=== PATIENT | male | born 1975 | race Caucasian/White ===

== ENCOUNTER 2023-04-02 09:38 | Day surgery (SDC) | payer OTHER, SELFPAY ==
[2023-04-02] VITALS (21 sets, daily range): BP systolic 118–165; BP diastolic 58–90; PULSE 61–87; RESP 12–18; TEMP 36.1–37.2; O2SAT 93–99; BMI 23.1
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
[2023-04-02] MEDS: PIPERACILLIN/TAZOBACTAM 3.375 GM in 0.9 % SODIUM CHLORIDE Mini-bag 100 ML IVPB ×3 (10:41→22:58)
[2023-04-02 10:44] LABS: Basophils Percent Auto 0.1 % (0.0-3.0); Eosinophils Percent Auto 0.1 % (0.0-7.0); Hemoglobin* 14.9 gm/dL (13.5-17.5); Immature Granulocytes Pct Auto 0.2 %; Lymphocytes Percent Auto 9.5 % (20-44); Mean Corpuscular HGB Conc 33 gm/dL (32-36); Mean Corpuscular Hemoglobin 31 pg (26-34); Mean Corpuscular Volume 93 fL (80-100); Monocytes Percent Auto 7.1 % (0.0-11.0); Platelet Count* 214 K/uL (140-440); RDW Coefficient of Variation % 12.9 % (11.5-15.5); Red Blood Count 4.85 m/uL (4.30-5.90)
[2023-04-02 10:45] LABS: Slide Review Reflex No
[2023-04-02 10:55] LABS: Chloride* 103 mmol/L (96-114); Potassium* 3.8 mmol/L (3.6-5.1); Sodium* 141 mmol/L (135-149)
[2023-04-02 10:58] LABS: Est. Creatinine Clearance* 106.59; Estimated Glomerular Filt Rate 94 ml/min
[2023-04-02 10:59] LABS: Anion Gap 13 mEq/L (7-15); Blood Urea Nitrogen* 11 mg/dL (5-24); Calcium* 9.8 mg/dL (8.4-10.6); Carbon Dioxide* 25 mmol/L (20-32); Glucose* 101 mg/dL (60-115)
[2023-04-02 11:22] LABS: Erythrocyte SedimentationRate* 28 mm/hr (2-15)
[2023-04-02] MEDS: LACTATED RINGERS 1000 ML 1,000 ML 100 ML IV ×2 (12:00→14:54)
--- NOTE | 2023-04-02 12:17 | W.ANESCHARGE ---
Anesthesia Charges Start Date/Time Anesthesia Start Date: 04/02/23 Anesthesia Start Time: 12:28 Stop Date/Time Anesthesia Stop Date: 04/02/23 Anesthesia Stop Time: 13:38 Summary Emergency: MDA
--- NOTE | 2023-04-02 13:15 | PM.ORCN ---
History of Present Illness HPI Date Seen: 04/02/23 Requesting physician: Rainer Mahoney Chief complaint: left arm/elbow infection Narrative: The patient is a 47-year-old caick-rekd-iuiprtoa gentleman with increasing left elbow pain and redness. He was diagnosed by Dr. Mahoney with septic olecranon bursitis. He has never injured this elbow or had surgery previously. He does not have diabetes, does not smoke cigarettes and is not on blood thinners. Review of Systems Narrative: The patient denies: Fever, night sweats, shaking chills, nausea, vomiting, diarrhea, chest pain, chest pressure, shortness of breath, no rash, no change in hearing or vision, no issues with bleeding or clotting PFSH PFSH Social History Smoking Status: Never smoker Do you use any of these nicotine containing products: None Second hand tobacco smoke exposure: No How often do you have a drink containing alcohol: monthly or less How many standard drinks containing alcohol do you have on a typical day: 1 or 2 AUDIT-C Alcohol total score: 1 Non-prescribed substance use: denies use Caffeine: Yes Meds Home Medications and Allergies Home Medications Medication Instructions Recorded Confirmed Type amoxicillin 875 mg-potassium 1 tab PO BID 04/02/23 04/02/23 History clavulanate 125 mg tablet Allergies Allergy/AdvReac Type Severity Reaction Status Date / Time No Known Drug Allergies Allergy Verified 04/02/23 11:47 Ortho Exam Narrative Exam Narrative: The patient is alert and oriented x3, in no acute distress, they are able to converse in a normal speaking voice without obvious hearing loss and with nonlabored breathing. 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 There is fluid in the olecranon bursa with overlying erythema, warmth and tenderness. There is no drainage. There is cellulitis proximally up the back of the arm. CMS to the hand is normal. Const Vital Signs, click to edit/add: Vital Signs - 24 hr 04/02/23 09:48 04/02/23 11:50 Temperature 98.8 F 98.9 F Pulse Rate 81 Pulse Rate [Right Pulse Oximeter] 81 Respiratory Rate 18 16 Blood Pressure 165/82 H Blood Pressure [Right Upper Arm] 136/89 Pulse Oximetry 99 98 Oxygen Delivery Method Room Air Room Air Results Labs Labs: Laboratory Results - last 48 hr 04/02/23 10:16 WBC 12.50 H RBC 4.85 Hgb 14.9 Hct 45.0 MCV 93 MCH 31 MCHC 33 RDW Coeff of [place] 12.9 Plt Count 214 Neut % (Auto) 83.0 H Lymph % (Auto) 9.5 L [place] % (Auto) 7.1 Eos % (Auto) 0.1 Baso % (Auto) 0.1 Neut # (Auto) 10.40 H Lymph # (Auto) 1.20 [place] # (Auto) 0.90 Eos # (Auto) 0.00 Baso # (Auto) 0.00 Abs Immat Gran (auto) 0.00 Imm/Tot Granulo (auto) 0.2 ESR 28 H Sodium 141 Potassium 3.8 Chloride 103 Carbon Dioxide 25 Anion Gap 13 BUN 11 Creatinine 1.0 Estimated Creat Clear 106.59 Estimated GFR 94 Glucose 101 Calcium 9.8 C-Reactive Protein 19.0 H Assessment and Plan Assessment and plan (1) Septic olecranon bursitis of left elbow: Status: Acute Plan Assessment: Left upper extremity septic olecranon bursitis Plan: He has been NPO and is medically cleared for surgery. Therefore, I have suggested that we take him to the operating room now for incision and drainage. I think he will likely need 24 hours of IV antibiotics.
--- NOTE | 2023-04-02 13:19 | PM.ORPRC ---
Procedure Note Date of procedure: 04/02/23 Procedure: PREOPERATIVE DIAGNOSIS: Left upper extremity septic olecranon bursitis POSTOPERATIVE DIAGNOSIS: Left upper extremity septic olecranon bursitis NAME OF OPERATION: Left olecranon incision and drainage, debridement of bursa SURGEON: Davin Scales MD PRODUCTION UNDERWRITER: VERO Parkinson ANESTHESIA: General ESTIMATED BLOOD LOSS: 0 mL COMPLICATIONS: None SPECIMENS: Routine cultures sent labeled as left elbow olecranon bursa DRAINS: None PREOPERATIVE ANTIBIOTICS: Received vancomycin in the emergency department INDICATIONS: The patient is a 47-year-old with a history of left elbow pain, swelling and redness. He presented to the emergency department today and was diagnosed with septic olecranon bursitis. Urgent incision and drainage was recommended. The risks, benefits and expected outcomes were discussed in detail. These included but were not limited to: Infection, bleeding, injury to blood vessel or nerve, venous thromboembolism. All questions were answered to their satisfaction. PROCEDURE: The patient was placed supine on the operating table. General anesthesia was administered. The left upper extremity was prepped and draped in the usual sterile fashion. The limb was exsanguinated with the Darwin bandage. The pneumatic tourniquet was inflated to 250 mmHg. A standard longitudinal incision was made over the posterior aspect of the elbow, curving it radially over the tip of the olecranon. Subcutaneous dissection was sharply taken to the bursa which was entered. Purulence was encountered. This was sent for routine cultures. Dissection was sharply taken to the olecranon on. The bursa was sharply debrided off of the skin side. We debrided the bursa in its entirety with the scalpel, curette and rongeur. The wound was irrigated with normal saline via pulse lavage. space was closed with a 0 Vicryl, skin closed with a 3-0 Stratafix in a subcuticular fashion. Glue was used to seal the skin. The tourniquet was released. A soft dressing and long-arm posterior splint were applied. Sponge and needle counts were correct x 2. The patient tolerated the procedure well. There were no apparent complications. They were carefully transferred to the hospital bed and taken to the postanesthesia care unit in satisfactory condition. PLAN: The patient will be admitted for IV antibiotics. Upon discharge, he can follow up in the office next week for a wound check.
--- NOTE | 2023-04-02 13:40 | W.ANESCHARGE ---
Anesthesia Charges Start Date/Time Anesthesia Start Date: 04/02/23 Anesthesia Start Time: 12:28 Stop Date/Time Anesthesia Stop Date: 04/02/23 Anesthesia Stop Time: 13:38 Summary Emergency: MDA
[2023-04-02] MEDS: ACETAMINOPHEN 325 MG TABLET 650 MG PO (14:53)
[2023-04-02] MEDS: OXYCODONE 5 MG TABLET PO (14:54)
--- NOTE | 2023-04-02 17:08 | PM.IMHP1 ---
Hospitalist- H&P: HPI History of Present Illness Date Seen: 04/02/23 Chief complaint: left arm/elbow infection Narrative: ADMISSION HISTORY AND PHYSICAL - HOSPITALIST Chief Complaint: Left elbow swelling HPI: 46-year-old Luis who has a history of paroxysmal AFib presented to the ED with increased pain and swelling in his left elbow. 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 Last week while responding to a call he is pretty sure he dragged his elbow through wild parsnip. 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 No fever. No chills. ER COURSE: No imaging. Basic labs. Ortho consult. He went straight to the OR from the ED. CODE STATUS: FULL CODE EMERGENCY CONTACT PLAN: Shira Watt? ?Rel to Pat? [phone]?Cell Phone? I've updated the PFSH, medications and allergies in the Expanse tabs. INVESTIGATIONS: LABS/MICRO/ECG/IMAGING Afebrile 98.9 (postoperatively) Blood pressure 130/82 Pulse 77 Respiratory rate 18 Pulse ox 95% on room air 81 kilos CBC reflects a leukocytosis of 12.5 Hemoglobin is normal at 14.9 Platelets 214 Basic metabolic is completely normal C reactive protein is up at 19 No imaging was completed No organisms were seen but there were moderate right blood cells on the Gram stain during surgery Aerobic and anaerobic culture are in progress 2 blood cultures are pending ECHO OV with Dr. Ho on 07/06. Echocardiogram ordered. Results reviewed by Dr. Ho. In basket message received from Dr. Ho. ? 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 Thank you very much ! Que Ho MD .................... ?07/13/2020 ? 1:35 PM ? Final Impressions: ?1. Normal left ventricular size, normal wall thickness, normal global systolic function, calculated EF of 61 %. ?2. Right ventricular cavity size is normal, global systolic RV function is normal. ?3. No significant valve disease detected. REVIEW OF SYSTEMS: 12-point ROS completed with patient and negative unless otherwise stated in HPI or below. PHYSICAL EXAM: CONSTITUTIONAL: Conversive, good historian. A/O. Knows setting and context. VITAL SIGNS: see record. HEENT: Normocephalic, atraumatic. PERRL, EOMI, conjunctivae pink, no scleral icterus. Ears and nose externally normal. Pharynx normal. NECK: No JVD. No carotid bruit, no thyromegaly, no adenopathy. CHEST: Clear to auscultation bilaterally HEART: S1 and S2 normal. No harsh murmurs. Edema MUSCULOSKELETAL: Left arm is in a postoperative splint. Not taken down. 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 NEURO: Cranial nerves intact. Grossly intact. No asymmetric findings. SKIN: No rashes, petechiae, concerning changes PSYCHIATRIC: Euthymic. ADMIT TO MEDSURG: FLOOR CARE DVT: SCDs GI: PO intake Time spent: Today I spent 75 minutes seeing the patient, discussing the patient with ER staff, reviewing Expanse and EPIC notes/diagnostics, discussing the care plan with our care time that includes social work, PT/OT, pharmacy, RT, detention and documenting my impressions and plan in the medical record. [facility] Medical History (Updated 04/03/23 @ 00:25 by Pham Max MD) Testicular torsion ?N44.00 - Torsion of testis, unspecified (ICD-10) PAF (paroxysmal atrial fibrillation) ?I48.0 - Paroxysmal atrial fibrillation (ICD-10) Surgical History (Updated 04/02/23 @ 17:18 by Pham Max MD) Hx of nasal septoplasty ?Z98.890 - Other specified postprocedural states (ICD-10) History of testicular surgery ?Z98.890 - Other specified postprocedural states (ICD-10) History of bronchoscopy ?Z98.890 - Other specified postprocedural states (ICD-10) Hx of appendectomy ?Z90.49 - Acquired absence of other specified parts of digestive tract (ICD-10) History of vasectomy ?Z98.52 - Vasectomy status (ICD-10) Social History Smoking Status: Never smoker Do you use any of these nicotine containing products: None Second hand tobacco smoke exposure: No How often do you have a drink containing alcohol: monthly or less How many standard drinks containing alcohol do you have on a typical day: 1 or 2 AUDIT-C Alcohol total score: 1 Non-prescribed substance use: denies use Caffeine: Yes Meds Home Medications and Allergies Home Medications Medication Instructions Recorded Confirmed Type amoxicillin 875 mg-potassium 1 tab PO BID 04/02/23 04/02/23 History clavulanate 125 mg tablet Allergies Allergy/AdvReac Type Severity Reaction Status Date / Time No Known Drug Allergies Allergy Verified 04/02/23 11:47 Exam Const: Vital Signs, click to edit/add: Vital Signs - 24 hr 04/02/23 09:48 04/02/23 11:50 04/02/23 13:35 Temperature 98.8 F 98.9 F 98.6 F Pulse Rate 81 85 Pulse Rate [Right Pulse Oximeter] 81 Respiratory Rate 18 16 14 Blood Pressure 165/82 H 136/82 Blood Pressure [Ri ght Arm] Blood Pressure [Ri ght Upper Arm] 136/89 Pulse Oximetry 99 98 93 Oxygen Delivery Me thod Room Air Room Air Nasal Cannula Oxygen Flow Rate 3 04/02/23 13:40 04/02/23 13:45 04/02/23 13:50 Temperature 98.9 F Pulse Rate 82 76 75 Pulse Rate [Right Pulse Oximeter] Respiratory Rate 14 12 15 Blood Pressure 134/79 127/83 130/80 Blood Pressure [Ri ght Arm] Blood Pressure [Ri ght Upper Arm] Pulse Oximetry 97 96 96 Oxygen Delivery Me thod Nasal Cannula Nasal Cannula Room Air Oxygen Flow Rate 3 2 04/02/23 13:55 04/02/23 14:00 04/02/23 14:05 Temperature 98.9 F Pulse Rate 77 69 77 Pulse Rate [Right Pulse Oximeter] Respiratory Rate 16 18 18 Blood Pressure 122/80 128/81 122/73 Blood Pressure [Ri ght Arm] Blood Pressure [Ri ght Upper Arm] Pulse Oximetry 93 95 95 Oxygen Delivery Me thod Room Air Room Air Room Air Oxygen Flow Rate 04/02/23 14:30 Temperature 98.9 F Pulse Rate 77 Pulse Rate [Right Pulse Oximeter] Respiratory Rate 18 Blood Pressure Blood Pressure [Ri ght Arm] 130/82 Blood Pressure [Ri ght Upper Arm] Pulse Oximetry Oxygen Delivery Me thod Room Air Oxygen Flow Rate Hospitalist - H&P: Result Labs Labs: Short CBC 08/31/23 Range/Units 10:16 WBC 12.50 H (4.50-11.00) K/uL Hgb 14.9 (13.5-17.5) gm/dL Hct 45.0 (37.0-53.0) % Plt Count 214 (140-440) K/uL [facility] 04/02/23 10:16 Sodium 141 Potassium 3.8 Chloride 103 Carbon Dioxide 25 BUN 11 Creatinine 1.0 Glucose 101 Calcium 9.8 Assessment and Plan Assessment and plan (1) Septic olecranon bursitis of left elbow: Problem comment: -gram stain negative. Cultures pending -vanc and Zosyn ordered for at least 24 hours Status: Acute (2) PAF (paroxysmal atrial fibrillation): Problem comment: -2 lifetime occurrences. No rate control or anticoagulation indicated. Status: Acute
--- NOTE | 2023-04-02 19:38 | PC.NURSE ---
Patient up to floor at 1415. alert and oriented x4. Rates pain 7/10 PRN oxy and tylenol administered with relief. Denies N/V/SOB. Dressing to left shoulder C/D/I. Left arm in a sling and dean bandage to arm intact. Will be removed tomorrow. Patient tolerating a regular diet. SL. on RA. Up to BR voided x2. Bilateral SCD's in use.
[2023-04-02] MEDS: SENNOSIDES 1 TAB TABLET 2 TAB PO (22:57)
[2023-04-02] MEDS: KETOROLAC 30 MG/ML inj IVP (22:57)
[2023-04-02] MEDS: 0.9 % SODIUM CHLORIDE 250 ml IV (22:58)
[2023-04-03 03:00] VITALS: BP 143/64; PULSE 82; RESP 16; TEMP 37.7; O2SAT 93
[2023-04-03] MEDS: PIPERACILLIN/TAZOBACTAM 3.375 GM in 0.9 % SODIUM CHLORIDE Mini-bag 100 ML IVPB ×2 (05:36→11:23)
[2023-04-03] MEDS: KETOROLAC 30 MG/ML inj IVP ×2 (05:37→11:23)
[2023-04-03 07:00] VITALS: BP 142/80; PULSE 77; RESP 16; TEMP 36.8; O2SAT 96
--- NOTE | 2023-04-03 08:40 | PC.NURSE ---
Pt pleasant and cooperative. He is up I in room. VSS he is voiding and tolerating a reg diet. T max over night 99.8 States no pain just like a little itch. No pain meds given.
--- NOTE | 2023-04-03 08:56 | PM.ORPN ---
Subjective Subjective Time Seen by Provider: 07:30 Date Seen: 04/03/23 Principal diagnosis: Left septic olecranon bursitis excision, irrigation and drainage on Interval history: Luis is comfortable this morning in his splint. He states his pain is much improved from yesterday. He is getting IV antibiotics Ortho Exam Narrative Exam Narrative: Alert and oriented x3. Patient is in no acute distress. Converses without labored breathing. Hearing is grossly intact. Ambulates with a normal gait. Examination of the left upper extremity shows the arm is in a long-arm splint. He is able to flex and extend his fingers. Capillary refill less than 2 seconds in his fingers. CMS is intact left upper extremity. Splint is well placed and non irritating to his skin, except he states he has minor itching inside. The skin is intact. Const Vital Signs, click to edit/add: Vital Signs - 24 hr 04/02/23 09:48 04/02/23 11:50 04/02/23 13:35 Temperature 98.8 F 98.9 F 98.6 F Pulse Rate 81 85 Pulse Rate [Pulse Oximeter] Pulse Rate [Right Pulse Oximeter] 81 Respiratory Rate 18 16 14 Blood Pressure 165/82 H 136/82 Blood Pressure [Right Arm] Blood Pressure [Right Upper Arm] 136/89 Pulse Oximetry 99 98 93 Oxygen Delivery Method Room Air Room Air Nasal Cannula Oxygen Flow Rate 3 04/02/23 13:40 04/02/23 13:45 04/02/23 13:50 Temperature 98.9 F Pulse Rate 82 76 75 Pulse Rate [Pulse Oximeter] Pulse Rate [Right Pulse Oximeter] Respiratory Rate 14 12 15 Blood Pressure 134/79 127/83 130/80 Blood Pressure [Right Arm] Blood Pressure [Right Upper Arm] Pulse Oximetry 97 96 96 Oxygen Delivery Method Nasal Cannula Nasal Cannula Room Air Oxygen Flow Rate 3 2 04/02/23 13:55 04/02/23 14:00 04/02/23 14:05 Temperature 98.9 F Pulse Rate 77 69 77 Pulse Rate [Pulse Oximeter] Pulse Rate [Right Pulse Oximeter] Respiratory Rate 16 18 18 Blood Pressure 122/80 128/81 122/73 Blood Pressure [Right Arm] Blood Pressure [Right Upper Arm] Pulse Oximetry 93 95 95 Oxygen Delivery Method Room Air Room Air Room Air Oxygen Flow Rate 04/02/23 14:22 04/02/23 14:30 04/02/23 14:30 Temperature 98.9 F 98.9 F 97.7 F Pulse Rate 77 Pulse Rate [Pulse Oximeter] 63 Pulse Rate [Right Pulse Oximeter] Respiratory Rate 18 18 18 Blood Pressure Blood Pressure [Right Arm] 130/82 130/82 138/87 Blood Pressure [Right Upper Arm] Pulse Oximetry 95 95 Oxygen Delivery Method Room Air Room Air Room Air Oxygen Flow Rate 2 04/02/23 14:45 04/02/23 15:00 04/02/23 15:00 Temperature 97.0 F L 97.6 F Pulse Rate Pulse Rate [Pulse Oximeter] 68 67 67 Pulse Rate [Right Pulse Oximeter] Respiratory Rate 18 18 18 Blood Pressure Blood Pressure [Right Arm] 133/78 122/76 Blood Pressure [Right Upper Arm] Pulse Oximetry 94 96 Oxygen Delivery Method Room Air Room Air Oxygen Flow Rate 04/02/23 15:15 04/02/23 15:45 04/02/23 16:15 Temperature 97.7 F 97.6 F 98.0 F Pulse Rate Pulse Rate [Pulse Oximeter] 68 87 68 Pulse Rate [Right Pulse Oximeter] Respiratory Rate 18 18 18 Blood Pressure Blood Pressure [Right Arm] 129/90 H 133/83 118/75 Blood Pressure [Right Upper Arm] Pulse Oximetry 95 93 93 Oxygen Delivery Method Room Air Room Air Room Air Oxygen Flow Rate 04/02/23 17:00 04/02/23 18:00 04/02/23 19:00 Temperature 98.0 F 97.6 F 98.0 F Pulse Rate Pulse Rate [Pulse Oximeter] 61 80 70 Pulse Rate [Right Pulse Oximeter] Respiratory Rate 18 18 18 Blood Pressure Blood Pressure [Right Arm] 122/83 124/72 122/75 Blood Pressure [Right Upper Arm] Pulse Oximetry 94 95 97 Oxygen Delivery Method Room Air Room Air Room Air Oxygen Flow Rate 04/02/23 20:00 04/02/23 23:00 04/03/23 03:00 Temperature 97.6 F 97.6 F 99.8 F H Pulse Rate Pulse Rate [Pulse Oximeter] 62 82 82 Pulse Rate [Right Pulse Oximeter] Respiratory Rate 18 18 16 Blood Pressure Blood Pressure [Right Arm] 126/58 L 143/70 H 143/64 H Blood Pressure [Right Upper Arm] Pulse Oximetry 96 96 93 Oxygen Delivery Method Room Air Room Air Room Air Oxygen Flow Rate Assessment and Plan Assessment and plan (1) Septic olecranon bursitis of left elbow: Problem details: -gram stain negative. Cultures pending -vanc and Zosyn ordered for at least 24 hours Status: Acute Assessment and Plan: The splint will be kept on for 1 week. I will see him next week for splint removal and wound check. He will keep the splint clean and dry. He will continue 24 hours of IV antibiotics and then discharge from the hospital later today. Cephalexin 500 mg 4 times daily for 1 week. Range of motion of the fingers and shoulder is encouraged. Tylenol and ibuprofen for pain. He has this at home. (2) PAF (paroxysmal atrial fibrillation): Problem details: -2 lifetime occurrences. No rate control or anticoagulation indicated. Status: Acute
[2023-04-03] MEDS: SENNOSIDES 1 TAB TABLET 2 TAB PO (09:37)
[2023-04-03 11:00] VITALS: BP 136/84; PULSE 64; RESP 15; O2SAT 95
[2023-04-03 15:00] VITALS: BP 144/87; PULSE 68; O2SAT 99
--- NOTE | 2023-04-03 15:14 | PC.NURSE ---
Nursing Care Hours: [id number] Pt this shift alert and oriented, calm and cooperative. CMS intact. Left hand sightly swollen but pt has full range of motion and strength. Up independently in room. Eating and drinking sufficiently, voiding in toilet. No c/o pain at this time. IV removed for discharge. Instructions went over with pt, all questions and concerns addressed. Pt ambulated off the unit in stable condition.
== END 2023-04-03 15:10 | disposition home or self-care (01) ==
LOC: ED 10:52 → SS 11:34 → MEDSURG 04-03 07:11
PROVIDERS: Emergency Provider Internal Medicine; Visit Provider Orthopaedic Surgery
PROC: (CPT 24105; principal; 2023-04-02 12:15)
DX: M71.122 Other infective bursitis, left elbow (principal); I48.0 Paroxysmal atrial fibrillation
CPT/HCPCS: 24105; 01710; 36415; 80048; 85025; 85651; 86140; 87040; 87070; 87075; 87186; 87205; 99140; 99283; 99285; A4580; A9270; J1100; J1885; J2405; J2543; J2704; J3010; J3370; J7050; J7120

== ENCOUNTER 2023-04-15 07:42 | Outpatient (RCR) | payer OTHER, SELFPAY ==
--- NOTE | 2023-04-15 08:52 | OT.OPOE ---
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 Clerical type work is okay, range of motion of the elbow is okay. No repetitive range of motion and no leaning on the elbow and no physical labor for 1 week with the left upper extremity. 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 Hand Pinch/Edge Burnisher Strength Hand Right Edge Burnisher Strength Position 1 (lbs) 126 Edge Burnisher Strength Position 2 (lbs) 130 Lateral Pinch Strength (lbs) 24 Left Edge Burnisher Strength Position 1 (lbs) 115 Edge Burnisher Strength Position 2 (lbs) 110 Lateral Pinch Strength (lbs) 24 OT Problems Problems Problems Decreased Range of Motion Problems Comments Chief compliant is stiffness mostly at end range (L elbow) Patient Potential Excellent Assessment Assessment Assessment 47 year old male patient presents to the clinic today, 2 week post left elbow I&D, left olecranon for left upper extremity septic olecranon bursitis. 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 He was initially on Augmentin. Post surgery he was placed on cephalexin 500 mg 4 times a day. He also had 24 hours of IV antibiotics post surgery. He initially was in a splint. He states today that he has no pain at all, just slight elbow stiffness at end range. Examination of the left elbow shows the incision is healing well. Surgical glue covers the wound. Very minimal soft tissue edema is present about the L elbow and forearm. No drainage. No significant erythema. L elbow AROM ( extension/flexion is 4 degrees -138 degrees with full supination/pronation, no impairments at the wrist/ shoulder. Occupational Therapy Treatment Plan - OP Potential Rehabilitation Potential Good Barriers Barriers to goal attainment None Set Goals Goals Set with Patient Yes Goals Goals 1. Patient will be taught and trained on L elbow stretching exercises and demonstrate full [place] with program in order to gain full AROM in L elbow 2. Patient will wear size E Tubigrip during the day and work on active muscle pumping in order to reduce edema in the L elbow (on date of EVAL, L elbow was .4 cm's bigger than the R elbow-measured over the elbow crease). Treatment Plan Treatment Plan Evaluation,Edema Control, Manual Therapy,Therapeutic Exercise Expected Frequency 1x Week Expected Duration 4-6 Weeks Home Program Home Program Home Program Initiated Home Program Specifics Access Code: [email or web address] URL: [email or web address] Date: 04/15/2023 Prepared by: Stacia Delacruz Exercises - Supine Chest Stretch with Elbows Bent - 1 x daily - 7 x weekly - 3 sets - 10 reps - 10-15 hold - Supine Elbow Extension Stretch in Supination - 1 x daily - 7 x weekly - 3 sets - 10 reps - 10-15 hold - Standing Elbow Extension with Towel Roll at Wall - Supination - 1 x daily - 7 x weekly - 3 sets - 10 reps - 10 -15 hold - Standing Elbow Extension with Towel Roll at Wall - Pronation - 1 x daily - 7 x weekly - 3 sets - 10 reps - 10 -15 hold - Supine Elbow Extension Stretch in Pronation - 1 x daily - 7 x weekly - 3 sets - 10 reps - 10-15 hold - Seated Elbow PROM Blocked Extension - 1 x daily - 7 x weekly - 3 sets - 10 reps - 10 -15 hold - Supine Elbow Flexion Extension AROM - 1 x daily - 7 x weekly - 3 sets - 10 reps - 10-15 hold Certification Certification I Certify That: Therapy Services Provided, Therapy Plan Established, Therapy Plan Reviewed Recertification Information Recertification Information Initial Certification Date 04/15/23 Recertification Due Date 06/14/23 Provider Signature Shows Agreement With POC & Medical Necessity Physician Comment/Change Comment or Changes Physician NPI Number #
== END 2023-06-10 13:47 | disposition home or self-care (01) ==
PROVIDERS: Visit Provider Physician Assistant
DX: Z98.890 Other specified postprocedural states (principal); R60.0 Localized edema; M25.622 Stiffness of left elbow, not elsewhere classified; Z51.89 Encounter for other specified aftercare
CPT/HCPCS: 97110; 97165; X5282